=== PATIENT | female | born 1990 | race Caucasian/White ===

== ENCOUNTER 2018-12-27 21:42 | Emergency (ER) | payer SELFPAY ==
[~2018-12-27] VITALS: Ht 170.2 cm; Wt 65.8 kg
[2018-12-27] MEDS ORDERED: IBUPROFEN 800 MG TABLET ONE (22:13)
[2018-12-27] MEDS ORDERED: IBUPROFEN 800 MG TABLET PO ONE (22:15)
--- NOTE | 2018-12-27 23:17 | NUR ---
pt refusing to stay for now. wants to leave and return later. advised risks advised return if symptoms increase change or persist
[2018-12-27 23:34] VITALS: BP 144/76
== END 2018-12-27 23:36 | disposition home or self-care (01) ==
LOC: ER 21:44
DX: R10.11 Right upper quadrant pain (principal); F17.200 Nicotine dependence, unspecified, uncomplicated
CPT/HCPCS: A4663

== ENCOUNTER 2018-12-29 02:27 | Emergency (ER) | payer MEDICAID ==
[~2018-12-29] VITALS: Ht 170.2 cm; Wt 65.8 kg
--- NOTE | 2018-12-29 02:41 | NUR ---
Pt. ambulated into ED w03/12 sharp RUQ pain that is tender to the touch, abd. S/R/ND, BS active x4 quads, A/Ox4, RR even and unlabored, speaks in clear and complete sentences, denies DURON/F/C/N/V/D/SOB,
--- NOTE | 2018-12-29 02:42 | NUR ---
at bedside for MSE
--- NOTE | 2018-12-29 02:43 | NUR ---
Pt. up to use restroom, ambulated w/ steady gait, urine specimen collected and sent to lab - clear yellow fluid, no blood noted, denies dysuria,
--- NOTE | 2018-12-29 02:57 | NUR ---
Phleb. tech. at bedside for blood draw,
[2018-12-29 03:06] LABS: BASOPHILS # (AUTO) 0.1 K/uL (0.0-8.0); BASOPHILS % (AUTO) 1.2 % (0.0-2.0); EOSINOPHILS # (AUTO) 0.4 K/uL (0.0-0.7); EOSINOPHILS % (AUTO) 3.5 % (0.0-7.0); HEMATOCRIT 37.1 % (31.2-41.9); HEMOGLOBIN 12.3 g/dL (10.9-14.3); LYMPHOCYTES # (AUTO) 2.3 K/uL (20.0-40.0); LYMPHOCYTES % (AUTO) 23.1 % (20.5-51.5); MEAN CORPUSCULAR HEMOGLOBIN 29.2 uug (24.7-32.8); MEAN CORPUSCULAR HGB CONC 33 g/dL (32.3-35.6); MEAN CORPUSCULAR VOLUME 88.3 fL (75.5-95.3); MONOCYTES # (AUTO) 0.5 K/uL (2.0-10.0); MONOCYTES % (AUTO) 4.9 % (0.0-11.0); NEUTROPHILS # (AUTO) 6.8 K/uL (1.8-8.9); NEUTROPHILS % (AUTO) 67.3 % (38.5-71.5); PLATELET COUNT (AUTO) 527 K/uL (179-408); WHITE BLOOD COUNT (AUTO) 10.1 K/uL (3.8-11.8)
[2018-12-29 03:16] LABS: *BILIRUBIN,URIN NEGATIVE (NEGATIVE); *BLOOD, URINE 1+ (NEGATIVE); *COLOR,URINE YELLOW (YELLOW); *KETONES,URINE NEGATIVE (NEGATIVE); *UROBILINOGEN,URINE 0.2 E.U./dl (NORMAL); LEUKOCYTE ESTERASE ,URINE 2+ (NEGATIVE); NITRITE, URINE NEGATIVE (NEGATIVE); UGLUCOSE NEGATIVE (NEGATIVE)
[2018-12-29 03:17] LABS: CARBON DIOXIDE 29 mmol/L (21-32); CHLORIDE 101 mmol/L (98-107); CREATININE 0.7 mg/dL (0.6-1.3); GLUCOSE 98 mg/dL (74-106); POTASSIUM 4.1 mmol/L (3.5-5.1); UREA NITROGEN, BLOOD 13 mg/dL (7-18)
[2018-12-29 03:17] LABS: *CLARITY,URINE HAZY (CLEAR)
[2018-12-29 03:22] LABS: ALANINE AMINOTRANSFERASE 64 U/L (14-59); ALKALINE PHOSPHATASE 99 U/L (50-136); ASPARTATE AMINOTRANSFERASE 20 U/L (15-37); BILIRUBIN,DIRECT 0.2 mg/dL (0.0-0.2); BILIRUBIN,TOTAL 0.7 mg/dL (0.2-1.0); LIPASE 189 U/L (73-393); TOTAL PROTEIN, SERUM 7.7 g/dL (6.4-8.2)
--- NOTE | 2018-12-29 03:25 | NUR ---
US tech. at bedside,
[2018-12-29 03:27] LABS: BACTERIA,URINE MODERATE /HPF (NONE SEEN); RBC,URINE 20-50 /HPF (0-3); SQUAMOUS EPITHELIAL CELL,UR MODERATE /HPF (NONE SEEN)
--- NOTE | 2018-12-29 04:03 | NUR ---
Pt. placed in gown and taken off unit via wheelchair by Rad. tech. for CT
--- NOTE | 2018-12-29 04:15 | NUR ---
Pt. back from CT, NAD
--- NOTE | 2018-12-29 05:40 | NUR ---
Radiology called for imaging to be read,
--- NOTE | 2018-12-29 06:30 | NUR ---
Patient discharged to home in stable conditon. Written and verbal after care instructions given. Patient verbalizes understanding of instructions. Pt. d/c w/ prescription per MD order, d/c papers signed, all belongings w/ pt., ID band removed, ambulated off unit w/ steady gait, NAD
[2018-12-31 10:06] LABS: *GC NAA Negative (Negative); *TRIC.VAG. NAA Positive (Negative)
== END 2018-12-29 06:33 | disposition home or self-care (01) ==
LOC: ER 02:28
DX: R10.11 Right upper quadrant pain (principal); F17.210 Nicotine dependence, cigarettes, uncomplicated
CPT/HCPCS: 36415; 70030-TC; 71045; 83690; 85025; 87077; 87086; 87491; 93005; A4663